=== PATIENT | male | born 1985 | race Caucasian/White ===

== ENCOUNTER 2019-07-09 05:00 | Emergency (ER) | payer MEDICAID ==
[~2019-07-09] VITALS: Ht 182.9 cm; Wt 79.4 kg
[2019-07-09 05:10] VITALS: BP 142/97
== END 2019-07-09 06:11 | disposition left against medical advice (07) ==
LOC: ER 05:00 → EDBD 05:00 → ER 06:11
DX: T40.601A Poisoning by unspecified narcotics, accidental (unintentional), initial encounter (principal); R40.4 Transient alteration of awareness; K21.9 Gastro-esophageal reflux disease without esophagitis; F12.90 Cannabis use, unspecified, uncomplicated; F15.90 Other stimulant use, unspecified, uncomplicated; Z53.29 Procedure and treatment not carried out because of patient's decision for other reasons; Y92.89 Other specified places as the place of occurrence of the external cause
CPT/HCPCS: 94761

== ENCOUNTER 2021-01-05 00:17 | Emergency (ER) | payer MEDICAID ==
[~2021-01-05] VITALS: Ht 182.9 cm; Wt 79.4 kg
[2021-01-05 00:18] VITALS: BP 135/93
== END 2021-01-05 04:19 | disposition left against medical advice (07) ==
LOC: ER 00:18
DX: L02.512 Cutaneous abscess of left hand (principal); Z53.21 Procedure and treatment not carried out due to patient leaving prior to being seen by health care provider
CPT/HCPCS: 73130